=== PATIENT | female | born 1945 | race Caucasian/White ===

== ENCOUNTER 2021-03-15 07:27 | Emergency (ER) | payer MEDICARE, BC ==
[~2021-03-15] VITALS: Ht 162.6 cm; Wt 63.5 kg
--- NOTE | 2021-03-15 08:10 | NUR ---
DR MAN AT BEDSIDE
--- NOTE | 2021-03-15 08:26 | NUR ---
iv line established blood drawn and sent to lab.
[2021-03-15] MEDS ORDERED: CEFTRIAXONE 1 G in IV D5W 50 ML IV ONE (08:30)
[2021-03-15] MEDS ORDERED: FLAGYL/NS RTU 500 MG/100 ML PIGGYBACK IV ONE (08:30)
--- NOTE | 2021-03-15 08:41 | NUR ---
REDUCER AT BEDSIDE FOR XRAY.
[2021-03-15] MEDS ORDERED: ONDANSETRON HCL/PF 4 MG/2 ML VIAL ONE (08:46)
[2021-03-15] MEDS ORDERED: MORPHINE SULFATE INJ 2 MG/ML DISP.SYRIN ONE (08:46)
[2021-03-15] MEDS ORDERED: ONDANSETRON HCL/PF 4 MG/2 ML VIAL IV ONE (09:00)
[2021-03-15] MEDS ORDERED: MORPHINE SULFATE INJ 2 MG/ML DISP.SYRIN IV ONE (09:00)
[2021-03-15] MEDS ORDERED: IV NS 0.9% 1,000 ML IV ONE (09:00)
[2021-03-15 09:02] LABS: BASOPHILS # (AUTO) 0.1 K/uL (0.0-0.2); BASOPHILS % (AUTO) 0.5 % (0.0-2.0); EOSINOPHILS % (AUTO) 0.2 % (0.0-6.0); HEMATOCRIT 41 % (33-45); HEMOGLOBIN 13.6 g/dL (11.5-14.8); LYMPHOCYTES # (AUTO) 0.5 K/uL (0.8-4.8); LYMPHOCYTES % (AUTO) 3.7 % (20.0-44.0); MEAN CORPUSCULAR HGB CONC 33 g/dl (31.0-36.0); MEAN CORPUSCULAR VOLUME 94 fL (82-100); MONOCYTES % (AUTO) 7.8 % (2.0-12.0); NEUTROPHILS # (AUTO) 10.7 K/uL (1.8-8.9); NEUTROPHILS % (AUTO) 87.8 % (43.0-81.0); PLATELET COUNT (AUTO) 216 K/uL (150-450); RED BLOOD CELL COUNT(AUTO) 4.37 MIL/uL (4.0-5.2); WHITE BLOOD COUNT (AUTO) 12.2 K/uL (4.3-11.0)
[2021-03-15] MEDS ORDERED: METRONIDAZOLE 500MG/ NS 100ML 100 ML IV ONE (09:21)
--- NOTE | 2021-03-15 09:24 | NUR ---
COVID SWAB DONE AND SENT TO LAB
[2021-03-15 09:25] LABS: CALCIUM, SERUM 8.1 mg/dL (8.5-10.1); CREATININE 0.9 mg/dL (0.6-1.3); POTASSIUM 3.5 mmol/L (3.5-5.1)
--- NOTE | 2021-03-15 09:36 | NUR ---
CALLED [facility] [phone] [facility] INFECTIOUS TENOSYNOVITIS WILL FAX FACE SHEET AND CLINICALS TO THEM.
--- NOTE | 2021-03-15 09:53 | NUR ---
[facility] FAXED FACE SHEET AND CLINICALS [phone] CURRENTLY AT CRITICAL CAPACITY.
--- NOTE | 2021-03-15 10:39 | NUR ---
CALLED [facility] [phone] [facility] TO [phone]
--- NOTE | 2021-03-15 11:30 | NUR ---
IV removed. Catheter intact and site benign. Pressure and 4x4 applied to site. No bleeding noted.
--- NOTE | 2021-03-15 11:34 | NUR ---
Patient does not wish to proceed with medical care recommended by Dr. Knight. Patient given information related to possible complications, up to and including , which could occur as a result of leaving the hospital at this time. Patient verbalizes understanding of risks involved due to leaving against medical advice. Patient has signed AMA form.
[2021-03-15 11:35] VITALS: BP 127/81
== END 2021-03-15 11:38 | disposition left against medical advice (07) ==
LOC: ER 07:31
DX: M65.141 Other infective (teno)synovitis, right hand (principal); S61.031A Puncture wound without foreign body of right thumb without damage to nail, initial encounter; L08.9 Local infection of the skin and subcutaneous tissue, unspecified; W55.01XA Bitten by cat, initial encounter; Y93.89 Activity, other specified; Y92.89 Other specified places as the place of occurrence of the external cause; E11.9 Type 2 diabetes mellitus without complications; Z88.0 Allergy status to penicillin; I45.10 Unspecified right bundle-branch block; Z20.822 Contact with and (suspected) exposure to COVID-19; Z53.29 Procedure and treatment not carried out because of patient's decision for other reasons; R03.0 Elevated blood-pressure reading, without diagnosis of hypertension; R94.31 Abnormal electrocardiogram [ECG] [EKG]
CPT/HCPCS: 36415; 71045; 73130; 80048; 85025; 85610; 86850 ×2; 87040 ×2; 87426; 93005; 96365; 96367; 96375; 99291; J0696; J2270; J2405; J7030; J7060; C9803

== ENCOUNTER 2022-06-29 09:45 | Emergency (ER) | payer MEDICARE, BC ==
[~2022-06-29] VITALS: Ht 160 cm; Wt 65.8 kg
--- NOTE | 2022-06-29 10:00 | NUR ---
PATIENT TAKEN TO CT VIA [facility]
--- NOTE | 2022-06-29 10:01 | NUR ---
DR. MAN AT BEDSIDE
--- NOTE | 2022-06-29 10:10 | NUR ---
[facility] in [facility] - 06/29/22 at 1023 by ADRIANA PATIENT UNABLE TO PROVIDE URINE SAMPLE AT THIS TIME.
[2022-06-29] MEDS ORDERED: LIDOCAINE 1% INJ 50 ML MDV IJ ONE ×2 (10:30→10:41)
[2022-06-29] MEDS ORDERED: BACI/NEOM/POLY B OINT PKT 1 UDPKT PACKET TP ONE (10:30)
--- NOTE | 2022-06-29 10:30 | NUR ---
PERFORMED PROCEDURE AT BEDSIDE
[2022-06-29] MEDS ORDERED: BACI/NEOM/POLY B OINT PKT 1 UDPKT PACKET ONE (10:32)
[2022-06-29] MEDS ORDERED: LIDOCAINE 0.5% HCL 50 ML VIAL ONE (10:33)
--- NOTE | 2022-06-29 11:52 | NUR ---
Patient discharged to home in stable condition. Written and verbal after care instructions given. Patient verbalizes understanding of instruction.
[2022-06-29 11:53] VITALS: BP 156/87
== END 2022-06-29 11:54 | disposition home or self-care (01) ==
LOC: ER 09:48
DX: S00.03XA Contusion of scalp, initial encounter (principal); M53.3 Sacrococcygeal disorders, not elsewhere classified; E11.9 Type 2 diabetes mellitus without complications; Z98.890 Other specified postprocedural states; Z88.0 Allergy status to penicillin; W19.XXXA Unspecified fall, initial encounter; Y93.89 Activity, other specified; Y92.512 Supermarket, store or market as the place of occurrence of the external cause; Y99.8 Other external cause status
CPT/HCPCS: 99284; 70450; J3490